=== PATIENT | female | born 1945 | race Caucasian/White ===

== ENCOUNTER 2021-04-28 10:10 | Outpatient (CLI) | payer MEDICARE ==
[2021-04-28 10:58] LABS: BASOPHILS % (AUTO) 0.5 % (0-1); EOSINOPHILS # (AUTO) 0.2 X10'3 (0-0.9); EOSINOPHILS % (AUTO) 3.9 % (0-6); HEMATOCRIT 42.9 % (35.0-45.0); HEMOGLOBIN 14.1 g/dl (12.0-16.0); LYMPHOCYTES # (AUTO) 1.6 X10'3 (1.1-4.8); LYMPHOCYTES % (AUTO) 26.2 % (21-51); MEAN CORPUSCULAR HEMOGLOBIN 29.1 PG (27.0-31.0); MEAN CORPUSCULAR HGB CONC 32.8 g/dL (33.0-36.5); MEAN CORPUSCULAR VOLUME 88.8 FL (78-98); MEAN PLATELET VOLUME 8.3 FL (7.4-10.4); MONOCYTES # (AUTO) 0.5 X10'3 (0-0.9); MONOCYTES % (AUTO) 8.3 % (2-12); NEUTROPHILS # (AUTO) 3.8 X10'3 (1.8-7.7); NEUTROPHILS % (AUTO) 61.1 % (42-75); PLATELET COUNT 218 X10'3 (140-440); RED BLOOD COUNT 4.83 X10'6 (4.20-5.60); RED CELL DISTRIBUTION WIDTH 15.4 % (11.5-14.5); WHITE BLOOD COUNT 6.2 X10'3 (4.5-11.0)
[2021-04-28 11:10] LABS: PARTIAL THROMBOPLASTIN TIME 28 SECONDS (22-32)
[2021-04-28 11:12] LABS: ALANINE AMINOTRANSFERASE 27 U/L (12-78); ALBUMIN 3.4 G/DL (3.4-5.0); ALBUMIN/GLOBULIN RATIO 0.9 (1.1-1.5); ALKALINE PHOSPHATASE 102 IU/L (46-116); ANION GAP 11 (8-16); ASPARTATE AMINO TRANSFERASE 27 U/L (10-37); BILIRUBIN,TOTAL 0.5 MG/DL (0.1-1.0); BLOOD UREA NITROGEN 13 MG/DL (7-18); CALCIUM 8.1 MG/DL (8.5-10.1); CHLORIDE 106 MMOL/L (99-107); GLUCOSE 141 MG/DL (70-104); POTASSIUM 4.4 MMOL/L (3.5-5.1); SODIUM 141 MMOL/L (135-145); TOTAL CARBON DIOXIDE 24.2 MMOL/L (24-32); TOTAL PROTEIN 7.3 G/DL (6.4-8.2); eGFR 54 ML/MIN
[2021-05-21] MEDS ORDERED: ATOR80TA PO (13:09)
[2021-05-21] MEDS ORDERED: SOLI5TAB2 PO (13:09)
[2021-05-21] MEDS ORDERED: VITA-268 PO (13:09)
[2021-05-21] MEDS ORDERED: CARV3.122 PO (13:09)
[2021-05-21] MEDS ORDERED: APIX5TAB3 PO (13:09)
[2021-05-28] MEDS ORDERED: ASPI-1265 PO ×2 (09:21)
== END 2021-04-28 23:59 | disposition home or self-care (01) ==
LOC: RAD 10:10
PROVIDERS: ATTEND Internal Medicine Cardiovascular Disease
DX: K57.30 Diverticulosis of large intestine without perforation or abscess without bleeding (principal); R94.2 Abnormal results of pulmonary function studies
CPT/HCPCS: 36415; 71046; 71275; 74174; 80053; 85025; 85610; 85730; 93880; 94010; 94727; 94729; Q9967; U0003

== ENCOUNTER → 2021-04-29 | Outpatient (CLI) | payer MEDICARE ==
[~2021-04-29] VITALS: Ht 160 cm; Wt 83.2 kg
[~2021-04-29] MED LIST: APIX5TAB3 PO; ASPI-1265 PO; ATOR80TA PO; CARV3.122 PO; IODIXANOL 320 MG/ML INFUS..BTL 100ML IV ONE; IODIXANOL 320 MG/ML INFUS..BTL 50ML IV ONE; SOLI5TAB2 PO; VITA-268 PO
[2021-04-29 16:07] VITALS: BP 195/74
--- NOTE | 2021-04-29 16:08 | NUR ---
Patient and daughter were in the TAVR clinic today to consult with Dr. Stone and Dr. Jesus. KCQ12 completed. Walk test completed. Vital signs measured. Patient education reviewed and questions answered.
== END | disposition home or self-care (01) ==
LOC: TAVR 14:39
PROVIDERS: ATTEND Internal Medicine Cardiovascular Disease
DX: I35.0 Nonrheumatic aortic (valve) stenosis (principal); R06.02 Shortness of breath; I65.29 Occlusion and stenosis of unspecified carotid artery
CPT/HCPCS: Q9967

== ENCOUNTER 2021-05-29 14:47 | Emergency (ER) | payer MEDICARE ==
[~2021-05-29] VITALS: Ht 160 cm; Wt 83.6 kg
[~2021-05-29 14:47] MED LIST changes: -ASPI-1265 PO; -IODIXANOL 320 MG/ML INFUS..BTL 100ML IV ONE; -IODIXANOL 320 MG/ML INFUS..BTL 50ML IV ONE
[2021-05-29] MEDS ORDERED: ondansetron 4mg rapidly disintigrating tab PO ONE (16:15)
[2021-05-29 18:37] VITALS: BP 183/65
[2021-05-29 18:42] LABS: CLARITY,URINE CLEAR (Clear); COLOR,URINE YELLOW (Yellow); PH,URINE 5.5 (4.8-8.0); UA COLLECTION TYPE CLN CATCH MIDSTREAM
[2021-05-29 18:43] LABS: GLUCOSE, URINE NEGATIVE (Neg); KETONES,URINE NEGATIVE (Neg); LEUKOCYTE ESTERASE ,URINE NEGATIVE (Neg); NITRITES, URINE NEGATIVE (Neg); OCCULT BLOOD,URINE NEGATIVE (Neg); PROTEIN,URINE NEGATIVE (Neg); UROBILINOGEN,URINE 0.2 E.U/dL (0.2-1.0)
== END 2021-05-29 18:39 | disposition home or self-care (01) ==
LOC: ER 14:48
DX: R11.0 Nausea (principal); R51.9 Headache, unspecified; H53.9 Unspecified visual disturbance; R03.0 Elevated blood-pressure reading, without diagnosis of hypertension; I25.10 Atherosclerotic heart disease of native coronary artery without angina pectoris; E78.00 Pure hypercholesterolemia, unspecified; Z95.5 Presence of coronary angioplasty implant and graft; Z79.899 Other long term (current) drug therapy; Z98.890 Other specified postprocedural states; Z79.01 Long term (current) use of anticoagulants
CPT/HCPCS: 70450; 81003; 99284

== ENCOUNTER 2021-06-18 07:04 | Inpatient (IN) | payer MEDICARE ==
[~2021-06-18] VITALS: Ht 160 cm; Wt 83.6 kg
[2021-06-18 07:44] LABS: BASOPHILS % (AUTO) 0.5 % (0-1); EOSINOPHILS # (AUTO) 0.2 X10'3 (0-0.9); EOSINOPHILS % (AUTO) 3.5 % (0-6); HEMATOCRIT 40.3 % (35.0-45.0); HEMOGLOBIN 13.2 g/dl (12.0-16.0); LYMPHOCYTES # (AUTO) 1.2 X10'3 (1.1-4.8); LYMPHOCYTES % (AUTO) 23.7 % (21-51); MEAN CORPUSCULAR HEMOGLOBIN 29.4 PG (27.0-31.0); MEAN CORPUSCULAR HGB CONC 32.9 g/dL (33.0-36.5); MEAN CORPUSCULAR VOLUME 89.5 FL (78-98); MEAN PLATELET VOLUME 8.7 FL (7.4-10.4); MONOCYTES # (AUTO) 0.4 X10'3 (0-0.9); MONOCYTES % (AUTO) 8.3 % (2-12); NEUTROPHILS # (AUTO) 3.4 X10'3 (1.8-7.7); PLATELET COUNT 192 X10'3 (140-440); RED CELL DISTRIBUTION WIDTH 16.1 % (11.5-14.5); WHITE BLOOD COUNT 5.3 X10'3 (4.5-11.0)
[2021-06-18 07:51] LABS: PARTIAL THROMBOPLASTIN TIME 31 SECONDS (22-32)
[2021-06-18 07:55] LABS: ALANINE AMINOTRANSFERASE 31 U/L (12-78); ALBUMIN 3.3 G/DL (3.4-5.0); ALBUMIN/GLOBULIN RATIO 0.8 (1.1-1.5); ALKALINE PHOSPHATASE 110 IU/L (46-116); ANION GAP 10 (8-16); ASPARTATE AMINO TRANSFERASE 34 U/L (10-37); BILIRUBIN,TOTAL 0.7 MG/DL (0.1-1.0); BLOOD UREA NITROGEN 16 MG/DL (7-18); BUN/CREATININE RATIO 15.1 (6.6-38.0); CALCIUM 8.6 MG/DL (8.5-10.1); CHLORIDE 104 MMOL/L (99-107); CREATININE 1.06 MG/DL (0.40-0.90); GLUCOSE 149 MG/DL (70-104); POTASSIUM 4.5 MMOL/L (3.5-5.1); SODIUM 139 MMOL/L (135-145); TOTAL CARBON DIOXIDE 25.1 MMOL/L (24-32); TOTAL PROTEIN 7.4 G/DL (6.4-8.2); eGFR 51 ML/MIN
[2021-06-18] MEDS ORDERED: iohexol 350MG/ML 100ml bottle IV ONE (08:00)
--- NOTE | 2021-06-18 08:05 | NUR ---
Level 1 changed to level 2 prior to my arrival. Pt on Eliquis post TAVR procedure.Telemed exam completed. Pt excluded from [facility]PA. Awakened confused this morning and unable to recognize family members.
--- NOTE | 2021-06-18 08:07 | NUR ---
DR. BARRIOS AT BEDSIDE.
[2021-06-18] MEDS ORDERED: APIX2.5T PO (08:59)
[2021-06-18] MEDS ORDERED: morphine 2 MG/ML inj. syringe IV PRN (09:30)
[2021-06-18] MEDS ORDERED: HYDROcodone/acetaminophen 5mg/325mg tablet PO PRN (09:30)
[2021-06-18] MEDS ORDERED: potassium Cl 20 mEq SR tablet PO PRN ×2 (09:30)
[2021-06-18] MEDS ORDERED: mag hydrox/Alum hydrox/simeth 30ml oral suspension PO PRN (09:30)
[2021-06-18] MEDS ORDERED: acetaminophen 325mg tablet PO PRN (09:30)
[2021-06-18] MEDS ORDERED: potassium Cl 40MEQ/1/2NS 520ml 520 ML IV PRN ×2 (09:30)
[2021-06-18] MEDS ORDERED: magnesium hydroxide 30ml (MOM) UD suspension PO PRN (09:30)
[2021-06-18] MEDS ORDERED: magnesium Cl slow-release 64mg tablet PO PRN (09:30)
[2021-06-18] MEDS ORDERED: magnesium 4gm in 100ml NS 100 ML IV PRN (09:30)
[2021-06-18] MEDS ORDERED: magnesium 2GM in 50ml NS 50 ML IV PRN (09:30)
[2021-06-18] MEDS ORDERED: PERFLUTREN PROTEIN-A MICROSPHR (Optison) 0.22 MG/ML 3ML VIAL IV ONE (09:30)
[2021-06-18] MEDS ORDERED: ondansetron/PF 4mg/2ml inj IV PRN (09:30)
[2021-06-18 09:45] LABS: CLARITY,URINE SLIGHTLY CLOUDY (Clear); COLOR,URINE STRAW (Yellow); GLUCOSE, URINE NEGATIVE (Neg); KETONES,URINE NEGATIVE (Neg); NITRITES, URINE POSITIVE (Neg); OCCULT BLOOD,URINE TRACE-INTACT (Neg); PH,URINE 6.5 (4.8-8.0); PROTEIN,URINE NEGATIVE (Neg); UA COLLECTION TYPE CLN CATCH MIDSTREAM
[2021-06-18 09:46] LABS: LEUKOCYTE ESTERASE ,URINE SMALL (Neg); UROBILINOGEN,URINE 0.2 E.U/dL (0.2-1.0)
[2021-06-18 09:57] LABS: BACTERIA,URINE 4+ /HPF (Neg); MUCUS STRANDS NONE SEEN /LPF (Neg); RBC,URINE 0-2 /HPF (0-2); SQUAMOUS EPITHELIAL CELL,UR FEW /LPF (FEW); WBC,URINE 50-100 /HPF (0-4)
[2021-06-18 09:58] LABS: WBC CLUMPS,URINE FEW /HPF (NEGATIVE)
--- NOTE | 2021-06-18 10:37 | NUR ---
Paged Dr. Pickens regarding high bp sbp 190's.
--- NOTE | 2021-06-18 10:37 | NUR ---
Spoke with Dr. Pickens made aware bp 190/71, states she will review med rec and gave RN a telephone order for Hydralazine 25mg po prn Q 6HR SBP >160, hold HR <60.
[2021-06-18] MEDS ORDERED: hyDRALAzine 10mg tablet PO PRN (10:40)
[2021-06-18] MEDS ORDERED: hydrALAZINE 25 MG tablet PO PRN (10:45)
--- NOTE | 2021-06-18 10:51 | NUR ---
Dr. Pickens at bedside.
[2021-06-18] MEDS: normal saline 1000ml 1,000 ML IV SCH (11:13)
[2021-06-18] MEDS: oxybutynin 5mg tablet PO SCH ×2 (11:15→21:12)
--- NOTE | 2021-06-18 11:23 | NUR ---
HOME MEDS TAKEN TO THE PHARMACY.
--- NOTE | 2021-06-18 11:54 | NUR ---
FAXED MRI CONSENT TO MRI.
[2021-06-18 14:00] VITALS: BP 152/68
[2021-06-18 15:00] VITALS: BP 169/54
[2021-06-18 18:00] VITALS: BP 166/70
--- NOTE | 2021-06-18 18:35 | NUR ---
Patient in room PCU 3023. I have received report from BETH DOWELL and had the opportunity to ask questions and assume patient care.
[2021-06-18 20:00] VITALS: BP 166/70
[2021-06-18] MEDS: K and/or MAG REPLACEMENT MC SCH (20:00)
[2021-06-18] MEDS ORDERED: heparin, porcine 5000 units/ml vial SQ SCH (20:00)
[2021-06-18] MEDS ORDERED: temazepam 15mg capsule PO PRN (21:00)
[2021-06-18] MEDS ORDERED: atorvastatin 20mg tablet PO SCH (21:00)
[2021-06-18] MEDS: carVEDilol 3.125mg tablet PO SCH (21:12)
[2021-06-18] MEDS: apixaban 2.5mg tablet PO SCH (21:13)
[2021-06-18 21:35] VITALS: BP 152/62
[2021-06-18 22:29] VITALS: BP 166/70
[2021-06-19] MEDS: normal saline 1000ml 1,000 ML IV SCH (00:17)
[2021-06-19 02:00] VITALS: BP 154/56
[2021-06-19 05:30] VITALS: BP 156/63
--- NOTE | 2021-06-19 06:10 | NUR ---
Problems reprioritized. Patient report given, questions answered & plan of care reviewed with Aldo DOWELL.
--- NOTE | 2021-06-19 06:11 | NUR ---
Problems reprioritized. Patient report given, questions answered & plan of care reviewed with BETH DOWELL.
--- NOTE | 2021-06-19 06:12 | NUR ---
Student documentation: I have reviewed and agree with all interventions, assessments performed and documented by STEPHEN ARGUETA.
--- NOTE | 2021-06-19 06:12 | NUR ---
Student Medication Administration: For this medication-pass time frame, all medication were reviewed, dispensed, administered and documented per hospital policy by STEPHEN DOWELL.
[2021-06-19 06:35] LABS: BASOPHILS % (AUTO) 0.2 % (0-1); EOSINOPHILS # (AUTO) 0.1 X10'3 (0-0.9); EOSINOPHILS % (AUTO) 3.3 % (0-6); HEMATOCRIT 35.2 % (35.0-45.0); MEAN CORPUSCULAR HGB CONC 34.2 g/dL (33.0-36.5); MEAN CORPUSCULAR VOLUME 87.8 FL (78-98); MEAN PLATELET VOLUME 8.1 FL (7.4-10.4); MONOCYTES # (AUTO) 0.4 X10'3 (0-0.9); NEUTROPHILS # (AUTO) 2.6 X10'3 (1.8-7.7); NEUTROPHILS % (AUTO) 62.5 % (42-75); PLATELET COUNT 145 X10'3 (140-440); RED BLOOD COUNT 4.01 X10'6 (4.20-5.60); WHITE BLOOD COUNT 4.1 X10'3 (4.5-11.0)
[2021-06-19 07:00] VITALS: BP 150/66
[2021-06-19 07:01] LABS: ALANINE AMINOTRANSFERASE 25 U/L (12-78); ALBUMIN 2.9 G/DL (3.4-5.0); ALBUMIN/GLOBULIN RATIO 0.8 (1.1-1.5); ALKALINE PHOSPHATASE 92 IU/L (46-116); ANION GAP 8 (8-16); ASPARTATE AMINO TRANSFERASE 25 U/L (10-37); BILIRUBIN,TOTAL 0.7 MG/DL (0.1-1.0); BLOOD UREA NITROGEN 15 MG/DL (7-18); BUN/CREATININE RATIO 13.8 (6.6-38.0); CALCIUM 8.4 MG/DL (8.5-10.1); CHLORIDE 109 MMOL/L (99-107); CHOL/HDL RATIO 3.8 (0.00-4.99); CHOLESTEROL 120 MG/DL (0-200); CREATININE 1.09 MG/DL (0.40-0.90); GLUCOSE 130 MG/DL (70-104); HDL CHOLESTEROL 32 MG/DL (35-60); LDL CHOLESTEROL 65 MG/DL (50-100); POTASSIUM 4.1 MMOL/L (3.5-5.1); SODIUM 143 MMOL/L (135-145); TOTAL CARBON DIOXIDE 26.1 MMOL/L (24-32); TOTAL PROTEIN 6.5 G/DL (6.4-8.2); TRIGLYCERIDES 137 MG/DL (20-135); eGFR 49 ML/MIN
[2021-06-19] MEDS: oxybutynin 5mg tablet PO SCH (07:34)
[2021-06-19] MEDS: apixaban 2.5mg tablet PO SCH (07:34)
[2021-06-19] MEDS: carVEDilol 3.125mg tablet PO SCH (07:34)
[2021-06-19] MEDS: K and/or MAG REPLACEMENT MC SCH (08:00)
[2021-06-19] MEDS ORDERED: CefTRIAXone 2gm/D5W 50ml BAG 50 ML IV SCH (08:00)
[2021-06-19 08:35] LABS: URINE AMPHETAMINE SCREEN NEGATIVE (Neg); URINE BARBITUATE SCREEN NEGATIVE (Neg); URINE BENZODIAZEPINES SCREEN NEGATIVE (Neg); URINE CANNABINOID SCREEN NEGATIVE (Neg); URINE COCAINE SCREEN NEGATIVE (Neg); URINE METHADONE SCREEN NEGATIVE (Neg); URINE OPIATE SCREEN NEGATIVE (Neg); URINE PHENCYCLIDINE SCREEN NEGATIVE (Neg)
[2021-06-19 11:00] VITALS: BP 148/73
[2021-06-19] MEDS ORDERED: CIPR-202 PO (14:12)
== END 2021-06-19 15:31 | disposition home or self-care (01) | DRG 690 ==
LOC: ER 07:04 → ED HOLD 09:18 → PCU 3S 13:22
PROVIDERS: ADMIT Internal Medicine; ATTEND Internal Medicine
PROC: B3251ZZ Computerized Tomography (CT Scan) of Bilateral Common Carotid Arteries using Low Osmolar Contrast (ICD-10-PCS; principal; 2021-06-18)
PROC: B32G1ZZ Computerized Tomography (CT Scan) of Bilateral Vertebral Arteries using Low Osmolar Contrast (ICD-10-PCS; 2021-06-18)
PROC: B32R1ZZ Computerized Tomography (CT Scan) of Intracranial Arteries using Low Osmolar Contrast (ICD-10-PCS; 2021-06-18)
PROC: B3281ZZ Computerized Tomography (CT Scan) of Bilateral Internal Carotid Arteries using Low Osmolar Contrast (ICD-10-PCS; 2021-06-18)
DX: N39.0 Urinary tract infection, site not specified (principal); R44.3 Hallucinations, unspecified; E78.00 Pure hypercholesterolemia, unspecified; R29.702 NIHSS score 2; E78.5 Hyperlipidemia, unspecified; N18.30 Chronic kidney disease, stage 3 unspecified; B95.2 Enterococcus as the cause of diseases classified elsewhere; I25.10 Atherosclerotic heart disease of native coronary artery without angina pectoris; Z95.2 Presence of prosthetic heart valve; Z98.61 Coronary angioplasty status; Z79.01 Long term (current) use of anticoagulants; Z79.899 Other long term (current) drug therapy
CPT/HCPCS: 36415; 70450; 70496; 70498; 70544; 70551; 71045; 80053; 80061; 80305; 81001; 82140; 82607; 82948; 83735; 84443; 85025; 85610; 85730; 86885; 86900; 86901; 87077; 87081; 87088; 87186; 92508; 92616; 93005; 93880; 99285; G0378; J0696; J7030; Q9967

== ENCOUNTER 2021-07-01 12:05 | Outpatient (CLI) | payer MEDICARE ==
[~2021-07-01] VITALS: Ht 160 cm; Wt 84.5 kg
[~2021-07-01 12:05] MED LIST changes: +APIX2.5T PO; -APIX5TAB3 PO; +CIPR-202 PO; -SOLI5TAB2 PO
[2021-07-01 16:30] VITALS: BP 171/65
--- NOTE | 2021-07-01 16:31 | NUR ---
Patient and her daughter were seen today for TAVR follow-up with Dr. Stone and Dr. Jesus. [facility] test completed. Vital signs measured. Echo and EKG reviewed with patient along with current condition of patients symptoms.
== END 2021-07-01 23:59 | disposition home or self-care (01) ==
LOC: CARD DIAG 12:05
PROVIDERS: ATTEND Internal Medicine Cardiovascular Disease
DX: I34.0 Nonrheumatic mitral (valve) insufficiency (principal); Z95.2 Presence of prosthetic heart valve; Z48.812 Encounter for surgical aftercare following surgery on the circulatory system
CPT/HCPCS: 93005; 93306

== ENCOUNTER 2022-05-16 10:02 | Outpatient (CLI) | payer MEDICARE ==
[~2022-05-16 10:02] MED LIST changes: -CIPR-202 PO
== END 2022-05-16 23:59 | disposition home or self-care (01) ==
LOC: CARD DIAG 10:02
PROVIDERS: ATTEND Internal Medicine Cardiovascular Disease
DX: I05.8 Other rheumatic mitral valve diseases (principal); R00.1 Bradycardia, unspecified; I45.19 Other right bundle-branch block; Z48.812 Encounter for surgical aftercare following surgery on the circulatory system; Z95.2 Presence of prosthetic heart valve
CPT/HCPCS: 93005; 93306